=== PATIENT | female | born 1960 | race Caucasian/White ===

== ENCOUNTER 2023-09-12 08:17 | Emergency (ER) | payer MEDICAID, OTHER ==
[~2023-09-12] VITALS: Ht 154.9 cm; Wt 41.5 kg
[2023-09-12 08:24] VITALS: TEMP 98
[2023-09-12 08:46] LABS: BILIRUBIN,URINE SMALL (Neg); CLARITY,URINE CLOUDY (Clear); COLOR,URINE YELLOW (Yellow); GLUCOSE, URINE NEGATIVE (Neg); KETONES,URINE TRACE mg/dl (Neg); LEUKOCYTE ESTERASE ,URINE NEGATIVE (Neg); NITRITES, URINE NEGATIVE (Neg); OCCULT BLOOD,URINE MODERATE (Neg); PH,URINE 5.5 (4.8-8.0); PROTEIN,URINE >=300 mg/dl (Neg)
[2023-09-12 08:51] LABS: UA COLLECTION TYPE CLN CATCH MIDSTREAM
[2023-09-12 08:52] LABS: SQUAMOUS EPITHELIAL CELL,UR MODERATE /LPF (FEW)
[2023-09-12 08:53] LABS: RBC,URINE 0-2 /HPF (0-2)
[2023-09-12 08:54] LABS: BACTERIA,URINE 4+ /HPF (Neg)
[2023-09-12] MEDS: acetaminophen 1,000mg/100ml IV 100 ML IV ONE (08:59)
[2023-09-12] MEDS: normal saline 1000ML IV soln IVB ONE ×2 (09:01→11:29)
[2023-09-12 09:21] LABS: EOSINOPHILS % (AUTO) 0 % (0-6); MEAN PLATELET VOLUME 10.4 FL (7.4-10.4); NEUTROPHILS # (AUTO) 14.9 X10'3 (1.8-7.7); PLATELET COUNT 91 X10'3 (140-440); RED CELL DISTRIBUTION WIDTH 15.2 % (11.5-14.5)
[2023-09-12 09:22] LABS: BASOPHILS % (AUTO) 0.1 % (0-1); HEMATOCRIT 52.7 % (35.0-45.0); LYMPHOCYTES # (AUTO) 0.5 X10'3 (1.1-4.8); LYMPHOCYTES % (AUTO) 2.6 % (21-51); MEAN CORPUSCULAR HEMOGLOBIN 36.4 PG (27.0-31.0); MEAN CORPUSCULAR HGB CONC 34.8 g/dL (33.0-36.5); MEAN CORPUSCULAR VOLUME 104.8 FL (78-98); MONOCYTES # (AUTO) 2.1 X10'3 (0-0.9); NEUTROPHILS % (AUTO) 85.3 % (42-75); RED BLOOD COUNT 5.02 X10'6 (4.20-5.60); WHITE BLOOD COUNT 17.5 X10'3 (4.5-11.0)
[2023-09-12 09:35] LABS: ANION GAP 9 (8-16); BLOOD UREA NITROGEN 36 MG/DL (7-18); CALCIUM 6.8 MG/DL (8.5-10.1); CHLORIDE 87 MMOL/L (99-107); CREATININE 0.75 MG/DL (0.40-0.90); GLUCOSE 91 MG/DL (70-104); SODIUM 131 MMOL/L (135-145); TOTAL CARBON DIOXIDE 34.7 MMOL/L (24-32); eCRCL 51 ML/MIN; eGFR 78 ML/MIN
[2023-09-12 09:36] LABS: POTASSIUM 2.4 MMOL/L (3.5-5.1)
[2023-09-12] MEDS ORDERED: magnesium Cl slow-release 64mg tablet PO PRN (09:40)
[2023-09-12] MEDS ORDERED: magnesium sulf-water 4G/100mL 100 ML IV PRN (09:40)
[2023-09-12] MEDS ORDERED: magnesium sulf-water 2g/50mL 50 ML IV PRN (09:40)
[2023-09-12] MEDS ORDERED: potassium Cl 40MEQ/1/2NS 520ml 520 ML IV PRN (09:40)
[2023-09-12] MEDS ORDERED: potassium Cl 20 mEq SR tablet PO PRN (09:40)
[2023-09-12 09:59] LABS: HEMOGLOBIN 18.3 g/dl (12.0-16.0)
[2023-09-12 10:54] LABS: LIPASE 353 U/L (16-77)
[2023-09-12] MEDS: potassium Cl 20 mEq SR tablet PO PRN (11:27)
[2023-09-12] MEDS: CefTRIAXone 2gm/D5W 50ml BAG 50 ML IV ONE (11:27)
[2023-09-12] MEDS: magnesium sulf-water 2g/50mL 50 ML IV ONE (11:28)
[2023-09-12] MEDS ORDERED: NO HOME MEDS (12:13)
[2023-09-12 12:51] VITALS: BP 154/100; PULSE 86; RESP 20; O2SAT 91
[2023-09-12 13:06] LABS: ETHANOL < 10 MG/DL (<10)
[2023-09-12] MEDS ORDERED: K and/or MAG REPLACEMENT MC SCH (20:00)
== END 2023-09-12 13:58 | disposition left against medical advice (07) ==
LOC: ER 08:18
DX: N39.0 Urinary tract infection, site not specified (principal); E87.6 Hypokalemia; E86.0 Dehydration; E83.42 Hypomagnesemia; R11.10 Vomiting, unspecified
CPT/HCPCS: 36415; 74176; 80048; 80320; 81001; 83690; 83735; 84145; 85025; 87077; 87088; 87186; 96361; 96365; 96366; 96368; 96375; 99285; J0131; J0696; J7030

== ENCOUNTER 2023-09-13 10:07 | Inpatient (IN) | payer MEDICAID ==
[~2023-09-13] VITALS: Ht 154.9 cm; Wt 42.5 kg
[~2023-09-13 10:07] MED LIST: NO HOME MEDS
[2023-09-13 11:38] LABS: BASOPHILS % (AUTO) 0.1 % (0-1); EOSINOPHILS % (AUTO) 0 % (0-6); HEMATOCRIT 49.9 % (35.0-45.0); HEMOGLOBIN 17.1 g/dl (12.0-16.0); LYMPHOCYTES # (AUTO) 0.3 X10'3 (1.1-4.8); MEAN CORPUSCULAR HEMOGLOBIN 36.2 PG (27.0-31.0); MEAN CORPUSCULAR HGB CONC 34.3 g/dL (33.0-36.5); MEAN CORPUSCULAR VOLUME 105.3 FL (78-98); MEAN PLATELET VOLUME 10.2 FL (7.4-10.4); MONOCYTES # (AUTO) 1.4 X10'3 (0-0.9); MONOCYTES % (AUTO) 12.5 % (2-12); NEUTROPHILS # (AUTO) 9.6 X10'3 (1.8-7.7); NEUTROPHILS % (AUTO) 84.4 % (42-75); PLATELET COUNT 111 X10'3 (140-440); RED BLOOD COUNT 4.74 X10'6 (4.20-5.60); RED CELL DISTRIBUTION WIDTH 15.1 % (11.5-14.5); WHITE BLOOD COUNT 11.4 X10'3 (4.5-11.0)
[2023-09-13 11:47] LABS: ALANINE AMINOTRANSFERASE 46 U/L (12-78); ALBUMIN 2.8 G/DL (3.4-5.0); ALBUMIN/GLOBULIN RATIO 0.7 (1.1-1.5); ALKALINE PHOSPHATASE 132 IU/L (46-116); ANION GAP 8 (8-16); ASPARTATE AMINO TRANSFERASE 38 U/L (10-37); BILIRUBIN,TOTAL 1.9 MG/DL (0.1-1.0); BLOOD UREA NITROGEN 13 MG/DL (7-18); CALCIUM 6.6 MG/DL (8.5-10.1); CHLORIDE 91 MMOL/L (99-107); CREATININE 0.62 MG/DL (0.40-0.90); GLUCOSE 140 MG/DL (70-104); LIPASE 172 U/L (16-77); SODIUM 132 MMOL/L (135-145); TOTAL PROTEIN 7.1 G/DL (6.4-8.2); eCRCL 63 ML/MIN; eGFR > 90 ML/MIN
[2023-09-13 11:56] LABS: POTASSIUM 2.4 MMOL/L (3.5-5.1)
[2023-09-13] MEDS ORDERED: acetaminophen 325mg tablet PO PRN (12:00)
[2023-09-13] MEDS ORDERED: magnesium sulf-water 4G/100mL 100 ML IV PRN ×2 (12:00→12:10)
[2023-09-13] MEDS ORDERED: potassium Cl 40MEQ/1/2NS 520ml 520 ML IV PRN (12:00)
[2023-09-13] MEDS ORDERED: potassium Cl 20 mEq SR tablet PO PRN (12:00)
[2023-09-13] MEDS ORDERED: magnesium sulf-water 2g/50mL 50 ML IV PRN ×2 (12:00→12:10)
[2023-09-13] MEDS ORDERED: magnesium Cl slow-release 64mg tablet PO PRN (12:00)
[2023-09-13] MEDS ORDERED: ondansetron/PF 4mg/2ml inj IV PRN (12:00)
[2023-09-13] MEDS: ringers solution, lacted 1,000 ML IV ONE (13:10)
[2023-09-13] MEDS: CefTRIAXone/D5W-Rocephin 1gm 50 ML IV SCH (13:10)
[2023-09-13] MEDS: normal saline 1000ml 1,000 ML IV SCH (13:11)
[2023-09-13] MEDS: potassium Cl 20 mEq SR tablet PO PRN (13:23)
[2023-09-13 13:28] LABS: HEMOGLOBIN A1C 4.8 % (4.5-6.2)
[2023-09-13 13:29] LABS: MAGNESIUM 1.1 MG/DL (1.5-2.4); PHOSPHORUS 1.7 MG/DL (2.3-4.5)
[2023-09-13 14:37] LABS: CHOL/HDL RATIO 1.7 (0.00-4.99); CHOLESTEROL 162 MG/DL (0-200); HDL CHOLESTEROL 97 MG/DL (35-60); LDL CHOLESTEROL 33 MG/DL (50-100); TRIGLYCERIDES 47 MG/DL (20-135)
[2023-09-13 14:46] LABS: URINE HCG NEGATIVE (NEG)
[2023-09-13 14:59] LABS: URINE AMPHETAMINE SCREEN NEGATIVE (Neg); URINE BARBITUATE SCREEN NEGATIVE (Neg); URINE BENZODIAZEPINES SCREEN NEGATIVE (Neg); URINE CANNABINOID SCREEN POSITIVE (Neg); URINE COCAINE SCREEN NEGATIVE (Neg); URINE METHADONE SCREEN POSITIVE (Neg); URINE OPIATE SCREEN NEGATIVE (Neg); URINE PHENCYCLIDINE SCREEN NEGATIVE (Neg)
[2023-09-13] MEDS: normal saline 1000ml 1,000 ML IV ONE (15:54)
[2023-09-13 16:12] LABS: BILIRUBIN,URINE NEGATIVE (Neg); CLARITY,URINE CLEAR (Clear); COLOR,URINE YELLOW (Yellow); GLUCOSE, URINE NEGATIVE (Neg); KETONES,URINE NEGATIVE (Neg); LEUKOCYTE ESTERASE ,URINE NEGATIVE (Neg); NITRITES, URINE NEGATIVE (Neg); OCCULT BLOOD,URINE TRACE-INTACT (Neg); PROTEIN,URINE NEGATIVE (Neg); UROBILINOGEN,URINE 0.2 E.U/dL (0.2-1.0)
[2023-09-13 16:14] LABS: UA COLLECTION TYPE NON-SPECIFIED
[2023-09-13 16:18] LABS: SQUAMOUS EPITHELIAL CELL,UR FEW /LPF (FEW)
[2023-09-13 16:19] LABS: BACTERIA,URINE NONE SEEN /HPF (Neg); RBC,URINE 0-2 /HPF (0-2); WBC,URINE NONE SEEN /HPF (0-4)
[2023-09-13] MEDS: morphine 2 MG/ML inj. syringe IV PRN ×2 (16:31→21:24)
[2023-09-13] MEDS: potassium Cl 40MEQ/1/2NS 520ml 520 ML IV PRN (16:56)
[2023-09-13 17:35] LABS: ALANINE AMINOTRANSFERASE 38 U/L (12-78); ALBUMIN 2.3 G/DL (3.4-5.0); ALBUMIN/GLOBULIN RATIO 0.6 (1.1-1.5); ALKALINE PHOSPHATASE 128 IU/L (46-116); ANION GAP 5 (8-16); ASPARTATE AMINO TRANSFERASE 38 U/L (10-37); BILIRUBIN,TOTAL 1.3 MG/DL (0.1-1.0); BLOOD UREA NITROGEN 9 MG/DL (7-18); BUN/CREATININE RATIO 20.9 (10.0-20.0); CALCIUM 6.2 MG/DL (8.5-10.1); CHLORIDE 96 MMOL/L (99-107); CREATININE 0.43 MG/DL (0.40-0.90); GLUCOSE 83 MG/DL (70-104); SODIUM 133 MMOL/L (135-145); TOTAL CARBON DIOXIDE 32.5 MMOL/L (24-32); TOTAL PROTEIN 6.1 G/DL (6.4-8.2); eCRCL 91 ML/MIN; eGFR > 90 ML/MIN
[2023-09-13 17:39] LABS: POTASSIUM 2.5 MMOL/L (3.5-5.1)
[2023-09-13] MEDS: K and/or MAG REPLACEMENT MC SCH (20:00)
[2023-09-13] MEDS: docusate sod 100mg capsule PO SCH (20:00)
[2023-09-14] VITALS (8 sets, daily range): BP systolic 134–182; BP diastolic 74–109; PULSE 73–91; RESP 14–21; TEMP 98–98.3; O2SAT 73–98
[2023-09-14] MEDS: labetalol 20mg/4ml (5mg/ml) syringe IV ONE (00:58)
[2023-09-14] MEDS: enoxaparin 40mg/0.4ml syringe SUBCUT SCH (07:19)
[2023-09-14 07:28] LABS: BASOPHILS % (AUTO) 0.1 % (0-1); EOSINOPHILS % (AUTO) 0.3 % (0-6); HEMATOCRIT 47.1 % (35.0-45.0); HEMOGLOBIN 16.2 g/dl (12.0-16.0); LYMPHOCYTES # (AUTO) 0.6 X10'3 (1.1-4.8); LYMPHOCYTES % (AUTO) 6.2 % (21-51); MEAN CORPUSCULAR HEMOGLOBIN 36.4 PG (27.0-31.0); MEAN CORPUSCULAR HGB CONC 34.4 g/dL (33.0-36.5); MEAN PLATELET VOLUME 9.9 FL (7.4-10.4); MONOCYTES # (AUTO) 1.5 X10'3 (0-0.9); MONOCYTES % (AUTO) 15.7 % (2-12); NEUTROPHILS # (AUTO) 7.4 X10'3 (1.8-7.7); NEUTROPHILS % (AUTO) 77.7 % (42-75); PLATELET COUNT 117 X10'3 (140-440); RED BLOOD COUNT 4.45 X10'6 (4.20-5.60); RED CELL DISTRIBUTION WIDTH 15.3 % (11.5-14.5); WHITE BLOOD COUNT 9.5 X10'3 (4.5-11.0)
[2023-09-14 07:48] LABS: ALANINE AMINOTRANSFERASE 37 U/L (12-78); ALBUMIN 2.3 G/DL (3.4-5.0); ALBUMIN/GLOBULIN RATIO 0.5 (1.1-1.5); ALKALINE PHOSPHATASE 148 IU/L (46-116); ANION GAP 13 (8-16); ASPARTATE AMINO TRANSFERASE 26 U/L (10-37); BILIRUBIN,TOTAL 1.4 MG/DL (0.1-1.0); BLOOD UREA NITROGEN 6 MG/DL (7-18); BUN/CREATININE RATIO 17.6 (10.0-20.0); CALCIUM 6.3 MG/DL (8.5-10.1); CHLORIDE 94 MMOL/L (99-107); CHOL/HDL RATIO 1.7 (0.00-4.99); CHOLESTEROL 137 MG/DL (0-200); CREATININE 0.34 MG/DL (0.40-0.90); GLUCOSE 72 MG/DL (70-104); HDL CHOLESTEROL 83 MG/DL (35-60); LDL CHOLESTEROL 31 MG/DL (50-100); SODIUM 132 MMOL/L (135-145); TOTAL PROTEIN 6.6 G/DL (6.4-8.2); TRIGLYCERIDES 61 MG/DL (20-135); eCRCL 115 ML/MIN; eGFR > 90 ML/MIN
[2023-09-14] MEDS ORDERED: hydrALAZINE 20mg/ml inj. IV PRN (07:50)
[2023-09-14 07:57] LABS: POTASSIUM 2.7 MMOL/L (3.5-5.1)
[2023-09-14 08:11] LABS: BILIRUBIN,DIRECT 0.6 MG/DL (0-0.3)
[2023-09-14] MEDS: amLODIPine 5mg tablet PO SCH (08:41)
[2023-09-14] MEDS: losartan 50mg tablet PO SCH (08:41)
[2023-09-14] MEDS: metroNIDAZOLE-Flagyl 500mg/NS 100 ML IV SCH (11:46)
[2023-09-14] MEDS ORDERED: albuterol 2.5 MG/3 ML nebule NEB PRN (14:35)
[2023-09-15] VITALS (7 sets, daily range): BP systolic 134–173; BP diastolic 69–94; PULSE 76–86; RESP 14–18; TEMP 97.1–98.7; O2SAT 90–96
[2023-09-15 06:45] LABS: BASOPHILS % (AUTO) 0.1 % (0-1); EOSINOPHILS % (AUTO) 0.3 % (0-6); HEMATOCRIT 48.4 % (35.0-45.0); HEMOGLOBIN 16.5 g/dl (12.0-16.0); LYMPHOCYTES # (AUTO) 0.5 X10'3 (1.1-4.8); LYMPHOCYTES % (AUTO) 5.9 % (21-51); MEAN CORPUSCULAR HEMOGLOBIN 35.9 PG (27.0-31.0); MEAN CORPUSCULAR HGB CONC 34.1 g/dL (33.0-36.5); MEAN CORPUSCULAR VOLUME 105.3 FL (78-98); MEAN PLATELET VOLUME 9.1 FL (7.4-10.4); MONOCYTES # (AUTO) 1.6 X10'3 (0-0.9); MONOCYTES % (AUTO) 19.5 % (2-12); NEUTROPHILS # (AUTO) 6.2 X10'3 (1.8-7.7); NEUTROPHILS % (AUTO) 74.2 % (42-75); PLATELET COUNT 136 X10'3 (140-440); RED BLOOD COUNT 4.59 X10'6 (4.20-5.60)
[2023-09-15 06:55] LABS: WHITE BLOOD COUNT 8.4 X10'3 (4.5-11.0)
[2023-09-15 06:58] LABS: ALANINE AMINOTRANSFERASE 38 U/L (12-78); ALBUMIN 2.2 G/DL (3.4-5.0); ALBUMIN/GLOBULIN RATIO 0.5 (1.1-1.5); ALKALINE PHOSPHATASE 177 IU/L (46-116); ANION GAP 12 (8-16); ASPARTATE AMINO TRANSFERASE 28 U/L (10-37); BILIRUBIN,TOTAL 1.3 MG/DL (0.1-1.0); BLOOD UREA NITROGEN 9 MG/DL (7-18); BUN/CREATININE RATIO 20.5 (10.0-20.0); CALCIUM 6.5 MG/DL (8.5-10.1); CHLORIDE 96 MMOL/L (99-107); CREATININE 0.44 MG/DL (0.40-0.90); GLUCOSE 71 MG/DL (70-104); PHOSPHORUS 2.2 MG/DL (2.3-4.5); POTASSIUM 3.6 MMOL/L (3.5-5.1); SODIUM 134 MMOL/L (135-145); TOTAL CARBON DIOXIDE 25.8 MMOL/L (24-32); TOTAL PROTEIN 6.6 G/DL (6.4-8.2); eCRCL 89 ML/MIN; eGFR > 90 ML/MIN
[2023-09-15 07:07] LABS: MAGNESIUM 0.8 MG/DL (1.5-2.4)
[2023-09-15 07:46] LABS: NUCLEATED RED BLOOD CELLS 1 /100WBC (0-0); TOTAL CELLS COUNTED 100
[2023-09-15 07:48] LABS: PLATELET ESTIMATE DECREASED
[2023-09-15 07:49] LABS: LARGE PLATELETS FEW
[2023-09-15] MEDS: losartan 50mg tablet PO SCH (08:25)
[2023-09-15] MEDS: magnesium sulf-water 4G/100mL 100 ML IV ONE (09:13)
[2023-09-15] MEDS: magnesium hydroxide 30ml (MOM) UD suspension PO PRN (09:37)
[2023-09-15] MEDS: diatr meglu/diatrizoate 30ml oral sol.-(3 dose) bottle PO SCH ×2 (21:00→21:01)
[2023-09-15] MEDS: HYDROcodone/acetaminophen 10/325mg tab PO PRN (21:20)
[2023-09-16] VITALS (9 sets, daily range): BP systolic 141–156; BP diastolic 65–93; PULSE 65–85; RESP 14–16; TEMP 97.4–98.2; O2SAT 92–95
[2023-09-16 06:42] LABS: BASOPHILS % (AUTO) 0.1 % (0-1); EOSINOPHILS % (AUTO) 0.4 % (0-6); HEMATOCRIT 47.2 % (35.0-45.0); HEMOGLOBIN 16.4 g/dl (12.0-16.0); LYMPHOCYTES # (AUTO) 0.6 X10'3 (1.1-4.8); LYMPHOCYTES % (AUTO) 7.8 % (21-51); MEAN CORPUSCULAR HEMOGLOBIN 36.2 PG (27.0-31.0); MEAN CORPUSCULAR HGB CONC 34.7 g/dL (33.0-36.5); MEAN CORPUSCULAR VOLUME 104.4 FL (78-98); MONOCYTES # (AUTO) 1.6 X10'3 (0-0.9); MONOCYTES % (AUTO) 19.4 % (2-12); NEUTROPHILS # (AUTO) 5.8 X10'3 (1.8-7.7); NEUTROPHILS % (AUTO) 72.3 % (42-75); PLATELET COUNT 173 X10'3 (140-440); RED BLOOD COUNT 4.52 X10'6 (4.20-5.60); RED CELL DISTRIBUTION WIDTH 14.7 % (11.5-14.5)
[2023-09-16 07:00] LABS: ALANINE AMINOTRANSFERASE 29 U/L (12-78); ALBUMIN 2.1 G/DL (3.4-5.0); ALBUMIN/GLOBULIN RATIO 0.5 (1.1-1.5); ALKALINE PHOSPHATASE 154 IU/L (46-116); ANION GAP 11 (8-16); ASPARTATE AMINO TRANSFERASE 23 U/L (10-37); BLOOD UREA NITROGEN 6 MG/DL (7-18); BUN/CREATININE RATIO 16.7 (10.0-20.0); CALCIUM 6.7 MG/DL (8.5-10.1); CHLORIDE 97 MMOL/L (99-107); CREATININE 0.36 MG/DL (0.40-0.90); GLUCOSE 102 MG/DL (70-104); LIPASE 133 U/L (16-77); MAGNESIUM 1.3 MG/DL (1.5-2.4); PHOSPHORUS 2.1 MG/DL (2.3-4.5); SODIUM 136 MMOL/L (135-145); TOTAL CARBON DIOXIDE 27.7 MMOL/L (24-32); TOTAL PROTEIN 6.1 G/DL (6.4-8.2); eCRCL 109 ML/MIN; eGFR > 90 ML/MIN
[2023-09-16 07:02] LABS: POTASSIUM 2.5 MMOL/L (3.5-5.1)
[2023-09-16] MEDS ORDERED: potassium Cl 20 mEq SR tablet PO PRN (07:10)
[2023-09-16 07:18] LABS: PLATELET ESTIMATE NORMAL; TOTAL CELLS COUNTED 100
[2023-09-16 07:19] LABS: POLYCHROMASIA 1+
[2023-09-16] MEDS: K and/or MAG REPLACEMENT MC SCH (08:00)
[2023-09-16] MEDS: spironolactone 25 MG tablet PO SCH (08:07)
[2023-09-16] MEDS ORDERED: iohexol 300mg/ml 100ml inj. ONE (10:09)
[2023-09-16] MEDS: CALCIUM GLUC 1gm/50ml NACL,iso 50 ML IV SCH (10:54)
[2023-09-16] MEDS: HYDROmorphone inj. 0.5 MG/0.5 ML DISP.SYRIN IV ONE (11:20)
[2023-09-16] MEDS: potassium Cl 40MEQ/1/2NS 520ml 520 ML IV PRN (12:48)
[2023-09-16] MEDS: magnesium sulf-water 4G/100mL 100 ML IV ONE (12:49)
[2023-09-16] MEDS ORDERED: HYDROmorphone inj. 0.5 MG/0.5 ML DISP.SYRIN IV PRN (15:40)
[2023-09-16] MEDS ORDERED: magnesium sulf-water 2g/50mL 50 ML IV PRN (16:10)
[2023-09-16] MEDS ORDERED: magnesium sulf-water 4G/100mL 100 ML IV PRN (16:10)
[2023-09-17 05:00] VITALS: BP 160/83; PULSE 62; RESP 18; TEMP 97.9; O2SAT 92
[2023-09-17 06:42] LABS: BASOPHILS % (AUTO) 0.3 % (0-1); EOSINOPHILS % (AUTO) 0.3 % (0-6); HEMATOCRIT 50.1 % (35.0-45.0); LYMPHOCYTES # (AUTO) 0.5 X10'3 (1.1-4.8); LYMPHOCYTES % (AUTO) 6.1 % (21-51); MEAN CORPUSCULAR HEMOGLOBIN 35.4 PG (27.0-31.0); MEAN CORPUSCULAR HGB CONC 33.9 g/dL (33.0-36.5); MEAN CORPUSCULAR VOLUME 104.4 FL (78-98); MEAN PLATELET VOLUME 8.9 FL (7.4-10.4); MONOCYTES % (AUTO) 12.7 % (2-12); NEUTROPHILS # (AUTO) 6.6 X10'3 (1.8-7.7); NEUTROPHILS % (AUTO) 80.6 % (42-75); PLATELET COUNT 206 X10'3 (140-440); RED CELL DISTRIBUTION WIDTH 14.8 % (11.5-14.5); WHITE BLOOD COUNT 8.2 X10'3 (4.5-11.0)
[2023-09-17 07:17] LABS: ALANINE AMINOTRANSFERASE 29 U/L (12-78); ALBUMIN 2.1 G/DL (3.4-5.0); ALBUMIN/GLOBULIN RATIO 0.5 (1.1-1.5); ALKALINE PHOSPHATASE 158 IU/L (46-116); ANION GAP 9 (8-16); ASPARTATE AMINO TRANSFERASE 20 U/L (10-37); BILIRUBIN,TOTAL 0.9 MG/DL (0.1-1.0); BLOOD UREA NITROGEN 4 MG/DL (7-18); BUN/CREATININE RATIO 11.1 (10.0-20.0); CALCIUM 7.7 MG/DL (8.5-10.1); CHLORIDE 100 MMOL/L (99-107); CREATININE 0.36 MG/DL (0.40-0.90); GLUCOSE 108 MG/DL (70-104); MAGNESIUM 1.3 MG/DL (1.5-2.4); PHOSPHORUS 2.5 MG/DL (2.3-4.5); POTASSIUM 3.2 MMOL/L (3.5-5.1); SODIUM 136 MMOL/L (135-145); TOTAL CARBON DIOXIDE 27.2 MMOL/L (24-32); TOTAL PROTEIN 6.3 G/DL (6.4-8.2); eCRCL 109 ML/MIN; eGFR > 90 ML/MIN
[2023-09-17 08:04] VITALS: PULSE 73; RESP 18; O2SAT 90
[2023-09-17] MEDS: potassium Cl 20 mEq SR tablet PO PRN (08:06)
[2023-09-17] MEDS: magnesium Cl slow-release 64mg tablet PO PRN (08:06)
[2023-09-17] MEDS: MULTIVIT-MIN/FERROUS GLUCONATE 9 MG/15 ML LIQUID PO SCH (08:08)
[2023-09-17] MEDS: spironolactone 50 MG tablet PO SCH (09:18)
[2023-09-17 10:00] VITALS: BP 142/74; PULSE 76; RESP 20; TEMP 97.6; O2SAT 91
[2023-09-17] MEDS: magnesium sulf-water 2g/50mL 50 ML IV ONE (11:41)
[2023-09-17 13:57] LABS: POTASSIUM 3.4 MMOL/L (3.5-5.1)
[2023-09-17 14:29] LABS: MAGNESIUM 1.8 MG/DL (1.5-2.4)
[2023-09-17] MEDS ORDERED: SPIR50TA5 PO (15:59)
[2023-09-17] MEDS ORDERED: LOSA50TA64 PO (15:59)
[2023-09-17] MEDS ORDERED: NOR5T PO (15:59)
[2023-09-17] MEDS ORDERED: CEFD300C3 PO (15:59)
[2023-09-20] MEDS ORDERED: MVI, adult No.4 with vit. K 10 ML in dextrose 5% water 500ml 500 ML IV SCH (08:00)
== END 2023-09-17 16:25 | disposition home or self-care (01) | DRG 282 ==
LOC: ER 10:08 → ED HOLD 12:05 → ORTHO 4S 09-14 01:10
PROVIDERS: ADMIT Family Medicine; ATTEND Family Medicine
PROC: BW211ZZ Computerized Tomography (CT Scan) of Abdomen and Pelvis using Low Osmolar Contrast (ICD-10-PCS; principal; 2023-09-16)
DX: K85.90 Acute pancreatitis without necrosis or infection, unspecified (principal); E83.51 Hypocalcemia; E87.1 Hypo-osmolality and hyponatremia; D75.1 Secondary polycythemia; N39.0 Urinary tract infection, site not specified; E87.6 Hypokalemia; E83.42 Hypomagnesemia
CPT/HCPCS: 36415; 74177; 74181; 76700; 80053; 80061; 80305; 81001; 81025; 82088; 82248; 82607; 83036; 83605; 83690; 83735; 84100; 84132; 84145; 84244; 85007; 85025; 87040; 87081; 93005; 93306; 93975; 94760; 97116; 97161; 97530; 99285; G0378; J0610; J0696; J1170; J2270; J3475; J3480; J3490; J7030; J7040; J7120; Q9963; Q9967

== ENCOUNTER 2025-01-06 09:13 | Emergency (ER) | payer MEDICAID ==
[~2025-01-06] VITALS: Ht 154.9 cm; Wt 43.2 kg
[~2025-01-06 09:13] MED LIST changes: +CEFD300C3 PO; +LOSA50TA64 PO; +NOR5T PO; +SPIR50TA5 PO
[2025-01-06 09:16] VITALS: TEMP 98.5
[2025-01-06 15:18] VITALS: BP 115/89; PULSE 78; RESP 15; O2SAT 99
--- NOTE | 2025-01-06 15:18 | Physician Documentation ---
History of Present Illness ~ Chief Complaint: Finger pain Stated Complaint: FINGER INFECTION Time Seen by MD: 14:58 Primary Medical Doctor: [facility] This is a 64-year-old female who presents with two days of pain and swelling to her right middle finger following a wound from a thorn in her yard while doing yard work, patient reports she was able to remove the foreign completely from her finger though it began becoming painful and swollen. Patient reports no fever or other systemic symptoms. Tetanus within 5 years: No Medication Reconciliation Allergies: Coded Allergies: No Known Allergies (Unverified , 01/06/25) Scheduled Amlodipine Besylate (Amlodipine Besylate), 10 MG PO DAILY Cefdinir (Cefdinir), 300 MG PO BID Cephalexin*Monohydrate* (Keflex*), 1 CAP PO QID Losartan Potassium (Losartan Potassium), 100 MG PO DAILY Spironolactone (Spironolactone), 25 MG PO DAILY@0830 Miscellaneous Medications Home Med List (No Home Medications), (Reported) Past Medical History Past Medical History: No Pertinent History Past Surgical History: no surgical history Patient History: FHx: emphysema Alcohol Use: None Drug Use: none Lives with: Other Lives In: Home Review of Systems ROS As stated above in the HPI, otherwise all systems are reviewed and negative. Physical Exam Vital Signs: Temperature: 98.5, Source: Temporal, Heart Rate: 98, Respiratory Rate: 16, BP: 181/83, Pulse Oximetry: 99, Weight: 43.180 Oxygen Flow Rate: 0 Physical Exam VITALS: Reviewed and as above. GENERAL: Alert, nontoxic appearing, no apparent distress. RESPIRATORY: No increased work of breathing, no respiratory distress, speaking in full clear sentences MUSCULOSKELETAL: Right 3rd finger swollen and erythematous, erythema greatest to the dorsal aspect, tenderness to dorsal aspect, no tenderness to palmar aspect, no fluctuance, no induration, no fusiform swelling Progress Results/Orders Results/Orders Completed Orders - LYN RHODES Acetaminophen 325mg Tablet (Tylenol Tabl (01/06/25 15:00) Cephalexin Capsule (Keflex Capsule) (01/06/25 15:00) Vital Signs 01/06/25 01/06/25 09:16 15:18 Temp 98.5 Pulse 98 78 Resp 16 15 B/P (MAP) 181/83 115/89 (98) Pulse Ox 99 99 O2 Flow Rate 0 Medical Decision Making Additional information obtaine: N/A Findings This is a 64-year-old female who presents with pain and swelling to her right 3rd finger after sustaining wound approximately two days prior, physical exam was reassuring as erythema and tenderness greatest on the dorsal aspect and does not appear to follow the tendon sheath, appears to be uncomplicated cellulitis of the digit. It was reassuring patient reported no systemic symptoms. Patient is otherwise well-appearing and appropriate for outpatient follow up. Patient be treated with course the oral antibiotics. Patient provided home care instruc tions, return to care precautions, and follow up instructions which she verbalized understanding of. General Diff Dx:Considerations: Include: Abrasion, Neurovascular injury Shoulder Diff Dx:Consideration: Unlikely: AC separation, Adhesive capsulitis, Arthritis, Bicipital tendonitis, Calcific tendonitis, Cervical disc disease, Contusion, Dislocation, Fracture-humerus, Fracture-scapula, Fracture-clavicle, GB disease, Hematoma, Impingement syndrome, Myocardial infarction, Neurovascular injury, Open fracture-humerus, Open fracture-scapula, Open fracture-clavicle, Rotator cuff injury, SC dislocatoin, Sprain, Subacromial bursitis, Other Elbow Diff Dx:Considerations: Unlikely: Abrasion, Arthritis, Contustion, DJD, Fracture-humerus, Fracture-radial head, Fracture-radius, Fracture-ulna, Gout, Hematoma, Laceration, Neurovascular injury, Olecranon bursitis, Open fracture, Osteomyelitis, Radial head subluxation, Rheumatoid arthritis, Septic, Sprain, Ulcer, Other Wrist Diff Dx:Considerations: Unlikely: Abrasion, Arthritis, DJD, Gout, Rheumatoid, Septic, Carpal tunnel snydrome, Contusion, Dislocation, Fracture- carpal, Fracture-radius, Fracture-ulna, Ganglion, Laceration, Neurovascular in jury, Open fracture, Strain, Other Hand Diff Dx:Considerations: Unlikely: Abrasion, Arthritis, Contusion, DJD, Felon, Fracture-carpal, Fracture-metacarpal, Fracture-phalynx, Fracture-radius, Fracture-ulna, Gout, Hematoma, Herpetic tiarra, Laceration, Neurovascular injury, Open fracture, Paronychia, Rheumatoid arthritis, Septic, Sprain, Subungual hematoma, Tenosynovitis, Volar plate injury, Cellulitis, Malunion, Other Finger Diff Dx:Considerations: Include: Abrasion, Cellulitis, Contusion, Dislocation, Fracture, Hematoma, Laceration, Neurovascular injury, Open fracture, Subungual hematoma, Other (Flexor tenosynovitis) Departure Time of Disposition: 15:18 Disposition: 01 HOME / SELF CARE / HOMELESS Impression: Primary Impression: Cellulitis Qualified Codes: L03.011 - Cellulitis of right finger Condition: Improved Discharge Instructions: Cellulitis, Adult, [id number] Additional Instructions: Please take the antibiotics as prescribed, otherwise keep the area clean and dry. Please follow up with your primary care provider in the next few days. Please return to the emergency department for any new or worsening concerning symptoms but not limited to if you develop a fever over 100.4 that does not lower with ibuprofen or Tylenol. Referrals: NO PRIMARY CARE PROVIDER (PCP) Prescriptions Cephalexin*Monohydrate* (Keflex*) 500 Mg Capsule 1 CAP PO QID for 7 Days, #28 CAP Prov: LYN RHODES 01/06/25 Education Educated: Patient Educated regarding: diagnosis, treatment, prognosis, need for follow up Signature Scribe Signature: No scribe Attestation: The note accurately reflects work and decisions made by me.NIKOLAI Arroyo 01/07/25 00:32 LYN RHODES Jan 06, 2025 15:18
[2025-01-06] MEDS ORDERED: CEPH-585 PO (15:21)
== END 2025-01-06 15:21 | disposition home or self-care (01) ==
LOC: ER 09:14
DX: L03.011 Cellulitis of right finger (principal); Z79.899 Other long term (current) drug therapy
CPT/HCPCS: 99283